=== PATIENT | female | born 1990 | race Asian ===

== ENCOUNTER 2017-08-24 06:52 | Inpatient (IN) | payer OTHER ==
[2017-08-24 07:44] LABS: Hematocrit 38 % (35-47); Hemoglobin 13.1 g/dl (12.0-16.0); Mean Corpuscular HGB Conc 35 g/dl (31-36); Mean Corpuscular Hemoglobin 32 pg (27-31); Mean Corpuscular Volume 93 fL (80-97); Mean Platelet Volume 9 um3 (7.4-10.4); Platelet Count 182 10^3/ul (150-450); Red Blood Count 4.07 10^6/ul (4.0-5.4); Red Cell Distribution Width 14 % (10.5-15); White Blood Count 8.9 10^3/ul (3.5-10.8)
[2017-08-24] MEDS ORDERED: OBEPIDURAL* 0 ML EPIDURAL ONE (07:54)
--- NOTE | 2017-08-24 07:55 | HP ---
General Information - General Information Maternal Age: 27 Grav: 1 Para: 0 Estimated Due Date: 09/04/17 Determined By: LMP Maternal Blood Type and Rh: AB Positive - Results this Serology/RPR Result: Non-Reactive Rubella Result: Immune HBsAg Result: Negative HIV Result: Negative GBS Culture Result: Negative Past Medical History Pertinent Past Medical History: Non-Contributory Pertinent Past Surgical History: See Records - eye surgery 2009 Pertinent Family History: See Records Family History Comment: diabetes - Antepartal Records Antepartal Records: Reviewed, Complicated by: - GDM Review of Systems Constitutional: Uncomfortable CV Complaint: No Respiratory: Shortness of Breath: No Gastrointestinal: No Nausea/Vomiting Genitourinary: No Dysuria, No Bleeding, No Leaking Fluid Musculoskeletal: Contractions Neurological: No Headache Movement: Normal Exam Allergies/Adverse Reactions: Allergies No Known Allergies Allergy (Verified 08/24/17 07:59) BP 100/65 T 36.7 HR 86 RR18 - Measurements Height: 5 ft 2 in Weight: 122 lb Body Mass Index (BMI): 22.3 Pre- Weight: 102 lb - Exam Abdomen: No Upper Quadrant Pain Breast: Breast Exam Deferred CVA: No CVA Tenderness Extremities: No Edema Heart: Normal Rhythm/Heart Sounds HEENT: No Significant Findings Lungs: Clear Bilaterally Rectal: Rectal Exam Deferred Reflexes: DTR 2+ - no clonus Thyroid: No Thyromegaly - Cervical Exam by RN 8cm/100/0 - Abdominal Exam Abdomen Exam: Non-Tender Abdomen Exam Comment: EFW 6.5lb - Membranes Membrane Status: Intact - Ultrasound/Biophysical Profile Ultrasound Status: Not Done EFM Findings - External Monitor Findings Baseline Heart Rate: 135 External Monitor Findings: Accelerations Present, No Pattern of Variable or Late Decelerations, Variability Moderate Contractions: Regular, Strong, 45-90 Seconds Assessment/Plan - Reason for Visit Reason for Visit: Term in labor - Obstetrical Risk Factors Obstetrical Risk Factors: Gestational Hypertension - Plan Plan: Active Labor - Date/Time of Admission Date of Admission: 08/24/17 Time of Admission: 07:12
[2017-08-24] MEDS ORDERED: Oxytocin in LR* 20 UNITS/1,000 ML BAG IVPB ONE (08:53)
[2017-08-24] MEDS ORDERED: Glycerin ADULT SUPP PR PRN (09:22)
[2017-08-24] MEDS ORDERED: Witch Hazel PAD* JAR TOPICAL PRN (09:22)
[2017-08-24] MEDS ORDERED: Acetaminophen TAB* 325 MG PO PRN (09:22)
[2017-08-24] MEDS ORDERED: Oxytocin in LR* 20 UNITS/1,000 ML BAG IVPB SCH (10:00)
[2017-08-24] MEDS ORDERED: Lidocaine 1% MPF* 2 ML VIAL ONE (10:05)
[2017-08-24] MEDS: Ibuprofen TAB* 600 MG PO PRN ×2 (10:11→20:30)
[2017-08-24] MEDS: Dibucaine 1% 28.35 GM TUBE PR PRN (10:12)
[2017-08-24] MEDS: Docusate CAP* 100 MG PO SCH ×2 (14:00→20:30)
[2017-08-25 06:39] LABS: Hematocrit 30 % (35-47); Hemoglobin 10.3 g/dl (12.0-16.0); Mean Corpuscular HGB Conc 35 g/dl (31-36); Mean Corpuscular Hemoglobin 32 pg (27-31); Mean Corpuscular Volume 94 fL (80-97); Mean Platelet Volume 8 um3 (7.4-10.4); Platelet Count 147 10^3/ul (150-450); Red Blood Count 3.17 10^6/ul (4.0-5.4); Red Cell Distribution Width 14 % (10.5-15); White Blood Count 9.3 10^3/ul (3.5-10.8)
[2017-08-25] MEDS ORDERED: Ferrous Gluconate TAB* 324 MG TAB PO SCH (09:00)
[2017-08-25] MEDS: Ibuprofen TAB* 600 MG PO PRN ×2 (09:19→15:48)
[2017-08-25] MEDS: Docusate CAP* 100 MG PO SCH ×3 (09:19→20:13)
[2017-08-25] MEDS: Dibucaine 1% 28.35 GM TUBE PR PRN (15:48)
[2017-08-26 07:51] VITALS: BP 106/69
[2017-08-26] MEDS: Docusate CAP* 100 MG PO SCH (08:19)
== END 2017-08-26 13:54 | disposition home or self-care (01) | DRG 775 ==
LOC: MCHOBOUT 06:52 → MCHOB 07:12
PROVIDERS: ADMIT Midwife; ATTEND Midwife
PROC: 10E0XZZ Delivery of Products of Conception, External Approach (ICD-10-PCS; principal; 2017-08-24)
PROC: 10907ZC Drainage of Amniotic Fluid, Therapeutic from Products of Conception, Via Natural or Artificial Opening (ICD-10-PCS; 2017-08-24)
PROC: 0W8NXZZ Division of Female Perineum, External Approach (ICD-10-PCS; 2017-08-24)
DX: O24.429 Gestational diabetes mellitus in childbirth, unspecified control (principal); O69.81X0 Labor and delivery complicated by cord around neck, without compression, not applicable or unspecified; Z3A.38 38 weeks gestation of pregnancy; Z37.0 Single live birth
CPT/HCPCS: 36415; 85027; 86850; 86900; 86901; A9270-GY